=== PATIENT | male | born 1985 | race African-American/Black ===

== ENCOUNTER 2017-04-06 22:09 | Emergency (ER) | payer SELFPAY ==
--- NOTE | 2017-04-06 23:37 | ER Document Report ---
ED General - General Chief Complaint: Toothache Stated Complaint: TOOTHACHE/FEVER Time Seen by Provider: 04/06/17 22:58 Notes: Patient is a 31-year-old male with a past medical history who presents with 3-4 days of multiple ulcers in the mouth with associated pain. He does describe these areas as being severely painful with a dull, aching, burning pain. Drinking or eating worsens the pain. He has tried ibuprofen with minimal improvement of the pain. He notes that he has had associated subjective fevers. His significant other did have lymphadenopathy and fever as well as a sore throat but did not develop ulcerative lesions in the oropharynx. He has no history of similar symptoms in the past. He has not seen a primary care doctor regarding these concerns. He denies any headache, altered mental status , vomiting, shortness of breath, or diarrhea. TRAVEL OUTSIDE OF THE [place] IN LAST 30 DAYS: No - Related Data Allergies/Adverse Reactions: No Known Allergies Allergy (Verified 04/06/17 22:12) Past Medical History - General Information source: Patient - Social History Smoking Status: Never Smoker Frequency of alcohol use: None Drug Abuse: None Lives with: Spouse/Significant other Family History: Reviewed & Not Pertinent Patient has suicidal ideation: No Patient has homicidal ideation: No Renal/ Medical History: Denies: Hx Peritoneal Dialysis - Immunizations Immunizations up to date: Yes Hx Diphtheria, Pertussis, Tetanus Vaccination: No Review of Systems - Review of Systems Notes: Constitutional: Positive for fever. HENT: Positive for multiple oral lesions Eyes: Negative for visual changes. Cardiovascular: Negative for chest pain. Respiratory: Negative for shortness of breath. Gastrointestinal: Negative for abdominal pain, vomiting or diarrhea. Genitourinary: Negative for dysuria. Musculoskeletal: Negative for back pain. Skin: Negative for rash. Neurological: Negative for headaches, weakness or numbness. 10 point ROS negative except as marked above and in HPI. Physical Exam - Vital signs Vitals: Temp Pulse Resp BP Pulse Ox 98.7 F 76 18 134/82 H 98 04/06/17 22:12 04/06/17 22:12 04/06/17 22:12 04/06/17 22:12 04/06/17 22:12 Interpretation: Normal Notes: PHYSICAL EXAMINATION: GENERAL: Well-appearing, well-nourished and in no acute distress. HEAD: Atraumatic, normocephalic. EYES: Pupils equal round and reactive to light, extraocular movements intact, sclera anicteric, conjunctiva are normal. ENT: nares patent, multiple ulcerative lesions along the hard palate, buccal mucosa, and gumline. Airway is widely patent. Moist mucous membranes. NECK: Normal range of motion, bilateral anterior cervical lymphadenopathy that is tender on palpation LUNGS: Breath sounds clear to auscultation bilaterally and equal. No wheezes rales or rhonchi. HEART: Regular rate and rhythm without murmurs ABDOMEN: Soft, nontender, normoactive bowel sounds. No guarding, no rebound. No masses appreciated. EXTREMITIES: Normal range of motion, no pitting or edema. No cyanosis. NEUROLOGICAL: No focal neurological deficits. Moves all extremities spontaneously and on command. PSYCH: Normal mood, normal affect. SKIN: Warm, Dry, normal turgor, no rashes or lesions noted. Course - Re-evaluation Re-evalutation: 04/06/17 23:31 Patient presents with symptoms most consistent with herpangina. Multiple ulcerative lesions throughout the oral mucosa including on the hard palate. Patient is otherwise well in appearance, no airway compromise. Bilateral cervical lymphadenopathy. Remainder physical exam is otherwise unremarkable. I discussed with the patient that this is a viral etiology and should resolve in the next 1-2 weeks. Will prescribe Magic mouthwash and recommend NSAIDs. At this time will discharge with return precautions and follow-up recommendations. Verbal discharge instructions given a the bedside and opportunity for questions given. Medication warnings reviewed. Patient is in agreement with this plan and has verbalized understanding of return precautions and the need for primary care follow-up in the next 24-72 hours. - Vital Signs Vital signs: Temp Pulse Resp BP Pulse Ox 98.5 F 71 18 134/79 H 100 04/06/17 23:52 04/06/17 23:52 04/06/17 23:52 04/06/17 23:52 04/06/17 23:52 Discharge - Discharge Clinical Impression: Herpangina Condition: Good Disposition: HOME, SELF-CARE Additional Instructions: Your ulcers are related to a condition called herpangina which is due to a viral infection. Her symptoms resolved in the next 1-2 weeks. Use Magic mouthwash as needed for pain. Continue take ibuprofen to assist with any fever. Return if you become unable to swallow, have persistent vomiting, pass out, become confused, or have any other symptoms that are worrisome to you. Prescriptions: Nystatin/Dexameth/Diphen [Magic Mouthwash ([facility] Formula) Susp] 5 ml PO QID #120 ml
[2017-04-06 23:54] VITALS: BP 134/79
== END 2017-04-06 23:55 | disposition home or self-care (01) ==
LOC: ER 22:09
DX: B08.5 Enteroviral vesicular pharyngitis (principal); R50.9 Fever, unspecified
CPT/HCPCS: 99282

== ENCOUNTER 2017-06-30 23:24 | Emergency (ER) | payer SELFPAY ==
[2017-07-01 00:12] VITALS: BP 160/105
[2017-07-01] MEDS ORDERED: HYDROCODONE/ACETAMINOPHEN 5-325 MG 6 TAB/DSPK PO PRN (00:42)
[2017-07-01] MEDS ORDERED: PENICILLIN V POTASSIUM 500 MG TABLET PO ONE (00:42)
--- NOTE | 2017-07-01 00:43 | ER Document Report ---
HPI - HPI Patient complains to provider of: Dental pain Onset: This afternoon Onset/Duration: Persistent Quality of pain: Achy Pain Level: 5 Context: Patient complains of dental pain that started this afternoon. Patient states pain is worse with drinking cold water. Patient denies any fever or facial swelling. Associated Symptoms: Other - Dental pain. denies: Fever Exacerbated by: Denies Relieved by: Other - [place] Similar symptoms previously: Yes Recently seen / treated by doctor: No - ROS ROS below otherwise negative: Yes Systems Reviewed and Negative: Yes All other systems reviewed and negative - CONSTITUTIONAL Constitutional: DENIES: Fever - EENT Notes: Dental pain - GASTROINTESTINAL Gastrointestinal: DENIES: Nausea, Patient vomiting - DERM Skin Color: Normal Skin Problems: None Past Medical History - General Information source: Patient - Social History Smoking Status: Never Smoker Frequency of alcohol use: Occasional Drug Abuse: None Occupation: [employer] Family History: Reviewed & Not Pertinent - Medical History Medical History: Negative Renal/ Medical History: Denies: Hx Peritoneal Dialysis Surgical Hx: Negative - Immunizations Immunizations up to date: Yes Hx Diphtheria, Pertussis, Tetanus Vaccination: No Vertical Provider Document - CONSTITUTIONAL Agree With Documented VS: Yes Exam Limitations: No Limitations General Appearance: WD/WN, No Apparent Distress - INFECTION CONTROL TRAVEL OUTSIDE OF THE [place] IN LAST 30 DAYS: No - HEENT HEENT: Atraumatic, Normocephalic Mouth Diagram: 1 - Tenderness, dental decay, no trismus, no abscess - NECK Neck: Normal Inspection, Supple. negative: Lymphadenopathy-Left, Lymphadenopathy-Right - RESPIRATORY Respiratory: Breath Sounds Normal, No Respiratory Distress, Chest Non-Tender O2 Sat by Pulse Oximetry: 100 - CARDIOVASCULAR Cardiovascular: Regular Rate, Regular Rhythm, No Murmur - BACK Back: Normal Inspection - MUSCULOSKELETAL/EXTREMETIES Musculoskeletal/Extremeties: JAVED GUERRIER - NEURO Level of Consciousness: Awake, Alert, Appropriate Motor/Sensory: No Motor Deficit - DERM Integumentary: Warm, Dry, No Rash Course - Re-evaluation Re-evalutation: 07/01/17 Controlled substance database reviewed - Vital Signs Vital signs: Temp Pulse Resp BP Pulse Ox 97 F L 72 16 160/105 H 100 07/01/17 00:05 07/01/17 00:05 07/01/17 00:05 07/01/17 00:05 07/01/17 00:05 Discharge - Discharge Clinical Impression: Toothache, Elevated blood pressure reading Condition: Stable Disposition: HOME, SELF-CARE Instructions: Oral Narcotic Medication ([facility]), Penicillin V K ([facility]), Toothache ( [facility]) Additional Instructions: Return immediately for any new or worsening symptoms Followup with your primary care provider, call tomorrow to make a followup appointment Follow-up with a dental provider, call Monday for an appointment Prescriptions: Naproxen [Naprosyn 250 Nmg Tablet] 1 tab PO BID #14 tablet Penicillin V Potassium [Penicillin Vk 500 mg Tablet] 500 mg PO BID #20 tablet Forms: Elevated Blood Pressure Referrals: [facility] [Provider Group] - Follow up as needed
== END 2017-07-01 01:10 | disposition home or self-care (01) ==
LOC: ER 23:24
DX: K08.9 Disorder of teeth and supporting structures, unspecified (principal); R03.0 Elevated blood-pressure reading, without diagnosis of hypertension
CPT/HCPCS: 99282

== ENCOUNTER 2017-10-10 13:44 | Emergency (ER) | payer SELFPAY ==
[2017-10-10 13:54] VITALS: BP 146/90
[2017-10-10] MEDS ORDERED: LIDOCAINE 2% VISCOUS SOLN 20 ML UDCUP PO ONE (14:35)
--- NOTE | 2017-10-10 14:37 | ER Document Report ---
HPI - HPI Patient complains to provider of: Tooth pain chronic Onset: Other - Several months Onset/Duration: Gradual, Persistent Pain Level: 5 Context: 32-year-old male complaining of multiple teeth with decay for several months they seem to be hurting this past week. He has not seen a dentist. No facial swelling or fever. He has been taking Tylenol 4000 mg a day without full relief. Associated Symptoms: None Exacerbated by: Other - Eating Relieved by: Denies - ROS ROS below otherwise negative: Yes Systems Reviewed and Negative: Yes All other systems reviewed and negative Past Medical History - General Information source: Patient - Social History Smoking Status: Current Every Day Smoker Frequency of alcohol use: None Drug Abuse: None Lives with: Family Family History: Reviewed & Not Pertinent - Medical History Medical History: Negative Renal/ Medical History: Denies: Hx Peritoneal Dialysis Surgical Hx: Negative - Immunizations Immunizations up to date: Yes Hx Diphtheria, Pertussis, Tetanus Vaccination: No Vertical Provider Document - CONSTITUTIONAL Agree With Documented VS: Yes Exam Limitations: No Limitations General Appearance: No Apparent Distress - INFECTION CONTROL TRAVEL OUTSIDE OF THE [place] IN LAST 30 DAYS: No - HEENT HEENT: Normocephalic Notes: Multiple molar tooth decay there is no abscess or gingival retraction. - NECK Neck: Supple. negative: Lymphadenopathy-Left, Lymphadenopathy-Right - RESPIRATORY Respiratory: Breath Sounds Normal, No Respiratory Distress - CARDIOVASCULAR Cardiovascular: Regular Rate, Regular Rhythm - NEURO Level of Consciousness: Awake, Alert - DERM Integumentary: Warm, Dry Course - Vital Signs Vital signs: Temp Pulse Resp BP Pulse Ox 98.8 F 65 18 146/90 H 98 10/10/17 13:51 10/10/17 13:51 10/10/17 13:51 10/10/17 13:51 10/10/17 13:51 Discharge - Discharge Clinical Impression: multiple teeth decay and pain Condition: Good Disposition: HOME, SELF-CARE Instructions: Acetaminophen, Anti-Inflammatory Medication ([facility]), Dentist, Penicillin V K ([facility]), Toothache ([facility]), Topical Lidocaine ([facility]) Additional Instructions: topical lidocaine given to you can use on the painful area motrin three times per day tylenol up to 4000 mg per day penicillin 500mg four times per day see the dentist return to er if worse Prescriptions: Ibuprofen [Motrin 800 mg Tablet] 800 mg PO Q8HP PRN #30 tablet PRN Reason: Penicillin V Potassium [Penicillin Vk 500 mg Tablet] 500 mg PO QID #40 tablet
== END 2017-10-10 14:48 | disposition home or self-care (01) ==
LOC: ER 13:44
DX: K02.9 Dental caries, unspecified (principal); F17.200 Nicotine dependence, unspecified, uncomplicated
CPT/HCPCS: 99282; J3490

== ENCOUNTER 2017-10-30 10:39 | Emergency (ER) | payer SELFPAY ==
[2017-10-30] MEDS ORDERED: LIDOCAINE 2% VISCOUS SOLN 20 ML UDCUP PO ONE (11:35)
--- NOTE | 2017-10-30 11:39 | ER Document Report ---
ED ENT - General Chief Complaint: Toothache Stated Complaint: TOOTHACHE Time Seen by Provider: 10/30/17 11:04 Mode of Arrival: Ambulatory Information source: Patient Notes: 32-year-old male presents to ED for complaint of pain to the left side of the mouth for about a month. He was seen here about a week ago put on medications but he did not complete his medication because it started feeling better and he stopped taking. He states he needs more of the viscous lidocaine and more of the antibiotics. He states he has an appointment to have the tooth fixed but is not till Monday. TRAVEL OUTSIDE OF THE [place] IN LAST 30 DAYS: No - HPI Patient complains to provider of: Dental problem Onset: Other - Several weeks Onset/Duration: Intermittent Quality of pain: Sharp Severity: Moderate Pain Level: 3 Location of pain: Tooth Associated symptoms: Dental pain, Dental caries Similar symptoms previously: Yes Recently seen / treated by doctor: Yes - Related Data Allergies/Adverse Reactions: No Known Allergies Allergy (Verified 10/30/17 10:40) Past Medical History - General Information source: Patient - Social History Smoking Status: Current Every Day Smoker Cigarette use (# per day): Yes - Pack per day Chew tobacco use (# tins/day): No Smoking Education Provided: Yes - 4 minutes Frequency of alcohol use: Social Drug Abuse: None Occupation: [employer] Lives with: Friend Family History: DM, Hypertension, Malignancy. denies: Arthritis, CAD, COPD, CVA , Hyperlipidemia, Thyroid Disfunction Patient has suicidal ideation: No Patient has homicidal ideation: No - Past Medical History Cardiac Medical History: Reports: None Pulmonary Medical History: Reports: None EENT Medical History: Reports: None Neurological Medical History: Reports: None Endocrine Medical History: Reports: None Renal/ Medical History: Reports: None Malignancy Medical History: Reports None GI Medical History: Reports: None Musculoskeltal Medical History: Reports None Skin Medical History: Reports None Psychiatric Medical History: Reports: None Traumatic Medical History: Reports: None Infectious Medical History: Reports: None Surgical Hx: Negative Past Surgical History: Reports: None - Immunizations Immunizations up to date: Yes Hx Diphtheria, Pertussis, Tetanus Vaccination: No Review of Systems - Review of Systems Constitutional: No symptoms reported EENT: Mouth pain, Dental problem Cardiovascular: No symptoms reported Respiratory: No symptoms reported Gastrointestinal: No symptoms reported Genitourinary: No symptoms reported Male Genitourinary: No symptoms reported Musculoskeletal: No symptoms reported Skin: No symptoms reported Hematologic/Lymphatic: No symptoms reported Neurological/Psychological: No symptoms reported -: Yes All other systems reviewed and negative Physical Exam - Vital signs Vitals: Pulse Resp BP Pulse Ox 66 18 176/109 H 98 10/30/17 10:57 10/30/17 10:57 10/30/17 10:57 10/30/17 10:57 Interpretation: Normal - General General appearance: Appears well, Alert - HEENT Head: Normocephalic, Atraumatic Eyes: Normal Pupils: PERRL Ears: Normal External canal: Normal Tympanic membrane: Normal Sinus: Normal Nasal: Normal Mouth/Lips: Caries Mucous membranes: Normal Pharynx: Normal Neck: Normal. No: Anterior cervical chain, Posterior cervical chain - Respiratory Respiratory status: No respiratory distress Chest status: Nontender Breath sounds: Normal Chest palpation: Normal - Cardiovascular Rhythm: Regular Heart sounds: Normal auscultation Murmur: No - Abdominal Inspection: Normal Distension: No distension Bowel sounds: Normal Tenderness: Nontender Organomegaly: No organomegaly - Back Back: Normal, Nontender - Extremities General upper extremity: Normal inspection, Nontender, Normal color, Normal ROM , Normal temperature General lower extremity: Normal inspection, Nontender, Normal color, Normal ROM , Normal temperature, Normal weight bearing. No: Antonio's sign - Neurological Neuro grossly intact: Yes Cognition: Normal Orientation: AAOx4 [place] Coma Scale Eye Opening: Spontaneous [place] Coma Scale Verbal: Oriented [place] Coma Scale Motor: Obeys Commands [place] Coma Scale Total: 15 Speech: Normal Motor strength normal: LUE, RUE, LLE, RLE Sensory: Normal - Psychological Associated symptoms: Normal affect, Normal mood - Skin Skin Temperature: Warm Skin Moisture: Dry Skin Color: Normal Course - Re-evaluation Re-evalutation: 10/30/17 19:59 After performing a Medical Screening Examination, I estimate there is LOW risk for a DEEP SPACE INFECTION (e.g., ISABELLE'S ANGINA OR RETROPHARYNGEAL ABSCESS), MENINGITIS, INTRACRANIAL HEMORRHAGE, or AIRWAY COMPROMISE, thus I consider the discharge disposition reasonable. Also, there is no evidence or peritonitis, sepsis, or toxicity. I have reevaluated this patient multiple times and no significant life threatening changes are noted. The patient and I have discussed the diagnosis and risks, and we agree with discharging home with close follow-up with the understanding that symptoms and presentations can change. We also discussed returning to the Emergency Department immediately if new or worsening symptoms occur. We have discussed the symptoms which are most concerning (e.g., changing or worsening pain, trouble swallowing or breathing, neck stiffness or fever) that necessitate immediate return. - Vital Signs Vital signs: Temp Pulse Resp BP Pulse Ox 63 18 156/91 H 98 10/30/17 11:44 10/30/17 10:57 10/30/17 11:44 10/30/17 11:44 Discharge - Discharge Clinical Impression: Pain due to dental caries HTN (hypertension) Qualifiers: Hypertension type: unspecified Qualified Code(s): I10 - Essential (primary) hypertension Condition: Stable Disposition: HOME, SELF-CARE Instructions: Family Physicians / Practices Additional Instructions: TOOTHACHE: Your pain is due to dental decay. The tooth must be repaired in order for you to feel better. You will, therefore, be referred to a dentist. We do not have dentists on the staff at [facility]. Severe swelling or drainage around a tooth usually means a dental abscess. This also requires evaluation and treatment by the dentist, but antibiotics may be prescribed while awaiting dental treatment. You should be rechecked immediately if you develop major swelling of the face, increasing pain, a lump in the jaw or gums, headache, difficulty swallowing, or fever. PENICILLIN V K: You have been given a prescription for Penicillin VK. Your physician has determined that this is the best antibiotic for your condition. Pen VK can be taken with meals, however more of the antibiotic gets into the bloodstream if it's taken on an empty stomach. Penicillin usually has no side effects. However, allergy to penicillins is common. If you have had an allergic reaction to any drug of the penicillin family, you should never take any other penicillin. Notify your doctor at once if you develop hives, itching, swelling, faintness, or shortness of breath. FOLLOW-UP CARE: You have been referred for follow-up care to the dentists listed below. Call the dentists office for an appointment as you were instructed or within the next two days. If you experience worsening or a significant change in your symptoms, notify the physician immediately or return to the Emergency Department at any time for re-evaluation. [facility] [address] [phone] [facility] [address] [place] [address] On License Of [facility] [address] [facility] [address] [facility] [address] [email or web address] [address] [place] [address] Monday- 8:00am to 5:00 pm Will see patients from other [facility]. Charges based on income and family size and accepts Medicare, Medicaid, and Insurances Will pull molars [facility] [address] Hours of Operation 8:00 am - 4:30 pm weekdays The following dental offices accept Medicaid: [facility] Dr. Alaom Dr. June Dr. Mijares Dr. Jose Chad Eckert Lutsavage, and [facility] Dr. Soto ([place]) Dr. Gilmore ([place]) [facility] Drs. Heck and Celestine ([place]) Dr. Marquis ([place]) [facility] Dr. Mistry ([place]) Drs. Santana and ([place]) Medicaid Care Line Prescriptions: Penicillin V Potassium [Penicillin Vk 500 mg Tablet] 500 mg PO BID #20 tablet Forms: Elevated Blood Pressure, Smoking Cessation Education, Return to Work
[2017-10-30 11:46] VITALS: BP 156/91
== END 2017-10-30 12:05 | disposition home or self-care (01) ==
LOC: ER 10:39
DX: K02.9 Dental caries, unspecified (principal); I10 Essential (primary) hypertension; F17.210 Nicotine dependence, cigarettes, uncomplicated
CPT/HCPCS: 99406; 99282; J3490

== ENCOUNTER 2018-07-31 19:55 | Emergency (ER) | payer SELFPAY ==
[2018-07-31 20:29] VITALS: BP 147/82
== END 2018-07-31 23:00 | disposition left against medical advice (07) ==
LOC: ER 19:55
DX: Z53.21 Procedure and treatment not carried out due to patient leaving prior to being seen by health care provider (principal)

== ENCOUNTER 2019-03-05 20:35 | Emergency (ER) | payer SELFPAY ==
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
--- NOTE | 2019-03-05 22:22 | RADIOLOGY REPORT (SQ) ---
EXAM DESCRIPTION: XR TIBIA FIBULA 2 VIEWS COMPLETED DATE/TME: 03/05/2019 21:18 CLINICAL HISTORY: 33 years, Male, leg pain COMPARISON: None. NUMBER OF VIEWS: 4 TECHNIQUE: Two views of the LEFT tibia-fibula were obtained in AP and lateral projection. LIMITATIONS: None. FINDINGS: No fracture or dislocation. The joint spaces are preserved. The soft tissues are within normal limits. IMPRESSION: No acute radiographic abnormality. copyright 2010 [employer]- All Rights Reserved
[2019-03-05 22:30] VITALS: BP 115/69
== END 2019-03-05 22:46 | disposition home or self-care (01) ==
LOC: ER 20:35
DX: S80.12XA Contusion of left lower leg, initial encounter (principal); W21.11XA Struck by baseball bat, initial encounter; R06.00 Dyspnea, unspecified; F17.200 Nicotine dependence, unspecified, uncomplicated
CPT/HCPCS: 99283